=== PATIENT | male | born 1950 | race African-American/Black ===

== ENCOUNTER 2021-03-22 13:59 | Outpatient (CLI) | payer MEDICARE, MEDICAID | END 2021-03-22 14:00 | disposition home or self-care (01) | LOC: CSHWCC 13:59 | PROVIDERS: ATTEND Nurse Practitioner Family | DX: L97.322 Non-pressure chronic ulcer of left ankle with fat layer exposed (principal); E11.40 Type 2 diabetes mellitus with diabetic neuropathy, unspecified; E11.65 Type 2 diabetes mellitus with hyperglycemia; F03.91 Unspecified dementia, unspecified severity, with behavioral disturbance; F20.9 Schizophrenia, unspecified; I87.2 Venous insufficiency (chronic) (peripheral); J44.9 Chronic obstructive pulmonary disease, unspecified; N40.0 Benign prostatic hyperplasia without lower urinary tract symptoms; R47.02 Dysphasia; I12.9 Hypertensive chronic kidney disease with stage 1 through stage 4 chronic kidney disease, or unspecified chronic kidney disease; N18.9 Chronic kidney disease, unspecified; D63.1 Anemia in chronic kidney disease; I05.9 Rheumatic mitral valve disease, unspecified; R60.0 Localized edema | CPT/HCPCS: 11042; 97139; G0463; 99204 ==

== ENCOUNTER 2021-09-30 07:49 | Inpatient (IN) | payer MEDICARE, MEDICAID ==
[2021-09-30] MEDS ORDERED: methylPREDNISolone Sod Succ/PF 125 MG/2 ML VIAL ONE (08:00)
[2021-09-30] MEDS ORDERED: Calcium Chloride 1 GM/10 ML Abboject SYRINGE ONE (08:17)
[2021-09-30] MEDS ORDERED: Succinylcholine 200 MG/10 ml SYRINGE FS ONE (08:17)
[2021-09-30] MEDS ORDERED: EPINEPHrine 1 MG/10 ML Abboject SYRINGE ONE (08:18)
[2021-09-30] MEDS ORDERED: Fentanyl 100 MCG/2 ML VIAL ONE ×3 (08:50→09:53)
[2021-09-30 08:51] LABS: Hemoglobin 12.7 g/dL (13.5-17.5); Manual Diff?? YES; Mean Corpuscular HGB CONC 30.2 g/dL (32.0-36.0); Mean Corpuscular Hemoglobin 34.1 pg (27.0-33.0); Mean Corpuscular Volume 113.2 fl (81.2-95.1); Mean Platelet Volume 12.7 fl (7.4-10.4); Platelet Count 385 10x3/uL (150-450); RBC Distribution Width 14.2 % (11.5-14.5); Red Blood Cell (RBC) Count 3.72 10x6/uL (4.32-5.72); White Blood Cell (WBC) Count 15.5 10x3/uL (3.5-10.5)
[2021-09-30 08:52] LABS: MDiff Complete? YES
[2021-09-30] MEDS ORDERED: fentaNYL Citrate/PF 2,000 MCG in Sodium Chloride 0.9% 60 ML IV SCH (09:00)
[2021-09-30 09:04] LABS: Bilirubin Neg (Negative); Blood, Urine 50 (Negative); Glucose, Urine (Dipstick) >=1000 mg/dL (Negative); Ketone, Urine 150 mg/dL (Negative); Leukocyte 500 (Negative); Nitrite Negative (Negative); Protein, Urine (Dipstick) 100 mg/dl (Neg-Trace); Urobilinogen Normal mg/dL (Less than 2)
[2021-09-30 09:05] LABS: Clarity Cloudy (Clear)
[2021-09-30 09:15] LABS: ALT (SGPT) 13 U/L (8-55); AST (SGOT) 13 U/L (5-34); Albumin 3.2 g/dL (3.4-4.8); Alkaline Phosphatase 132 U/L (40-110); Anion Gap 47 mmol/L (10-20); BUN (Urea Nitrogen) 72 mg/dL (8.4-25.7); Bilirubin, Total 0.3 mg/dL (0.2-1.2); Calc. Creatinine Clearance 0 mL/min (70-130); Calcium 9.8 mg/dL (7.8-10.44); Carbon Dioxide 10 mmol/L (23-31); Chloride 99 mmol/L (98-107); Globulin 4.6 g/dL (2.4-3.5); Lipase 41 U/L (8-78); Potassium 6.3 mmol/L (3.5-5.1); Protein, Total 7.8 g/dL (5.8-8.1); Sodium 150 mmol/L (136-145)
[2021-09-30 09:19] LABS: Bacteria/HPF 4+ HPF (None Seen); WBC/HPF Greater than 50 HPF (0-3); Yeast-Budding 4+ HPF (None Seen)
[2021-09-30 09:19] LABS: Band 36 % (5-11); Eosinophils 1 % (0-10); Lymphocytes 9 % (21-51); Metamyelocyte 2 % (0-0); Monocytes 17 % (0-10); Myelocyte 2 % (0-0); Neutrophil 32 % (42-75); Reactive Lymphocytes 1 % (0-10)
[2021-09-30 09:20] LABS: Mucous/LPF 2+ LPF (<2+)
[2021-09-30 09:21] LABS: Platelet Morphology Comment Appears Adequate
[2021-09-30 09:24] LABS: Dohle Bodies SLIGHT; Toxic Granulation SLIGHT
[2021-09-30 09:26] LABS: Anisocytosis SLIGHT = 6-15 cells (100X) (0-5/hpf); Glucose Greater than 800 mg/dL (80-115); Phosphorus 10.4 mg/dL (2.3-4.7); Polychromasia SLIGHT = 2-3 cells (100X) (0-2/hpf)
[2021-09-30 09:28] LABS: Basophilic Stippling SLIGHT = 1-2 cells (100X) (None Seen)
[2021-09-30 09:48] LABS: Base Excess (BEa) -16.7 mEq/L (-2.0 to +3.0); CO2 Tension 39.1 mmHg (35.0-45.0); Calcium, Ionized (arterial) 1.37 mmol/L (1.12-1.30); Carboxyhemoglobin (COHb) 0.3 gm% (0.0-3.0); Critical Notified Whom: ER MD; Hemoglobin (Hb) 11.6 g/dL (14.0-18.0); O2 Tension (PaO2), arterial 64.2 mmHg (> 80.0); Potassium - ABG Lab 5.1 mmol/L (3.70-5.30); Puncture Site RBA; Temperature 36.8 C; pH, Arterial 7.11 (7.35-7.45)
[2021-09-30] MEDS ORDERED: Acetaminophen 650 MG Suppository PR PRN (09:48)
[2021-09-30 09:49] LABS: ALV-art Gradient 599.925 mmHg (0-20)
[2021-09-30] MEDS ORDERED: NS 0.9% w/ 20 MEQ KCL 1,000 ML IV PRN ×2 (09:56)
[2021-09-30] MEDS ORDERED: Sodium Chloride 0.9% 1,000 ML IV PRN ×4 (09:56)
[2021-09-30] MEDS ORDERED: Electrolyte Replacement Protocol 1 EACH IVPB ONE (09:56)
[2021-09-30] MEDS ORDERED: Dextrose 5 %-0.45 % NaCl 1,000 ML IV PRN (09:56)
[2021-09-30] MEDS ORDERED: Ventilator Sedation Protocol 1 EACH FS SCH (10:00)
[2021-09-30] MEDS ORDERED: HUMULIN R 100 UNITS in Sodium Chloride 0.9% 100 ML IVPB SCH (10:00)
[2021-09-30] MEDS ORDERED: Insulin Regular 300 UNITS/3 ML VIAL ONE (10:21)
[2021-09-30] MEDS ORDERED: cefTRIAXone\\ROCEPHIN 2 GM VIAL ONE (10:21)
[2021-09-30 10:31] LABS: SARS-CoV-2 NAA Rapid Test Not Detected (NotDetected)
[2021-09-30 10:37] LABS: Anion Gap 43 mmol/L (10-20); BUN (Urea Nitrogen) 67 mg/dL (8.4-25.7); Calc. Creatinine Clearance 0 mL/min (70-130); Calcium 10.1 mg/dL (7.8-10.44); Chloride 106 mmol/L (98-107); Potassium 5.2 mmol/L (3.5-5.1); Sodium 152 mmol/L (136-145)
[2021-09-30 10:42] LABS: Carbon Dioxide 8 mmol/L (23-31)
[2021-09-30 10:44] LABS: Glucose Greater than 800 mg/dL (80-115)
[2021-09-30] MEDS ORDERED: Morphine 2 MG/ML VIAL SLOW IVP PRN (11:30)
[2021-09-30] MEDS ORDERED: DISCONTINUE PREVIOUS NARCOTIC PAIN MEDICATIONS AND BENZODIAZEPINES FS SCH (11:30)
[2021-09-30] MEDS ORDERED: Propofol BOLUS 1,000 MG/100 ML VIAL IV PRN (11:30)
[2021-09-30] MEDS: INSULIN REGULAR IN 0.9 % NACL 100 UNIT in Premix Bag 1 BAG IVPB SCH ×2 (11:46→20:08)
[2021-09-30 12:06] LABS: Anion Gap 40 mmol/L (10-20); BUN (Urea Nitrogen) 68 mg/dL (8.4-25.7); Calc. Creatinine Clearance 16 mL/min (70-130); Calcium 9.6 mg/dL (7.8-10.44); Chloride 109 mmol/L (98-107); Potassium 4.4 mmol/L (3.5-5.1); Sodium 154 mmol/L (136-145)
[2021-09-30 12:11] LABS: Carbon Dioxide 9 mmol/L (23-31)
[2021-09-30 12:23] LABS: Glucose Greater than 800 mg/dL (80-115)
[2021-09-30 13:12] LABS: Actual Bicarbonate (HCO3a) 12.4 mEq/L (22-28); Base Excess (BEa) -14.5 mEq/L (-2.0 to +3.0); Hemoglobin (Hb) 11.9 g/dL (14.0-18.0); O2 Tension (PaO2), arterial 189.8 mmHg (> 80.0); Potassium - ABG Lab 3.8 mmol/L (3.70-5.30); Puncture Site LBA; pH, Arterial 7.19 (7.35-7.45)
[2021-09-30 13:23] LABS: Lactic Acid 2.5 mmol/L (0.5-2.2)
[2021-09-30 13:48] LABS: Anion Gap 37 mmol/L (10-20); BUN (Urea Nitrogen) 67 mg/dL (8.4-25.7); Calc. Creatinine Clearance 16 mL/min (70-130); Calcium 9.3 mg/dL (7.8-10.44); Carbon Dioxide 11 mmol/L (23-31); Chloride 112 mmol/L (98-107); Potassium 3.8 mmol/L (3.5-5.1); Sodium 156 mmol/L (136-145)
[2021-09-30 13:49] LABS: Glucose 709 mg/dL (80-115)
[2021-09-30] MEDS: Propofol 1,000 MG/100 ML VIAL IV PRN (13:58)
[2021-09-30 15:15] LABS: Glucose 519 mg/dL (80-115)
[2021-09-30] MEDS: Cefepime 1 GM in Sodium Chloride 0.9% 100 ML IVPB SCH (15:47)
[2021-09-30] MEDS ORDERED: Vancomycin HCl 750 MG in Sodium Chloride 0.9% 250 ML 250 ML IVPB SCH (16:30)
[2021-09-30] MEDS ORDERED: Sodium Bicarb 50 MEQ/50 ML Abboject 8.4% SYRINGE ONE (17:52)
[2021-09-30 17:58] LABS: Anion Gap 22 mmol/L (10-20); BUN (Urea Nitrogen) 56 mg/dL (8.4-25.7); Calc. Creatinine Clearance 20 mL/min (70-130); Calcium 8.6 mg/dL (7.8-10.44); Carbon Dioxide 19 mmol/L (23-31); Chloride 122 mmol/L (98-107); Glucose 321 mg/dL (80-115); Potassium 3.2 mmol/L (3.5-5.1); Sodium 160 mmol/L (136-145)
[2021-09-30] MEDS: D5 1/2 NS w/20 mEq KCL 1,000 ML IV PRN (20:05)
[2021-09-30] MEDS: Famotidine/PF 20 mg/2ml Vial SLOW IVP SCH (20:07)
[2021-09-30] MEDS ORDERED: Vancomycin 1 GM in Premix Bag 1 BAG IVPB PRN (21:00)
[2021-10-01] MEDS: D5 1/2 NS w/20 mEq KCL 1,000 ML IV PRN ×3 (00:10→08:56)
[2021-10-01] MEDS: INSULIN REGULAR IN 0.9 % NACL 100 UNIT in Premix Bag 1 BAG IVPB SCH (01:55)
[2021-10-01] MEDS: Propofol 1,000 MG/100 ML VIAL IV PRN ×3 (03:27→22:34)
[2021-10-01 04:59] LABS: Anion Gap 12 mmol/L (10-20); BUN (Urea Nitrogen) 42 mg/dL (8.4-25.7); Calc. Creatinine Clearance 27 mL/min (70-130); Calcium 8.2 mg/dL (7.8-10.44); Carbon Dioxide 24 mmol/L (23-31); Glucose 197 mg/dL (80-115); Potassium 3.5 mmol/L (3.5-5.1); Sodium 159 mmol/L (136-145)
[2021-10-01 05:05] LABS: Chloride 127 mmol/L (98-107)
[2021-10-01] MEDS: fentaNYL Citrate-0.9 % NaCl/PF 100 ML IVPB SCH ×2 (05:56→18:15)
[2021-10-01 07:31] LABS: Actual Bicarbonate (HCO3a) 24.9 mEq/L (22-28); Base Excess (BEa) 0.2 mEq/L (-2.0 to +3.0); CO2 Tension 40.3 mmHg (35.0-45.0); Calcium, Ionized (arterial) 1.21 mmol/L (1.12-1.30); Carboxyhemoglobin (COHb) 0.5 gm% (0.0-3.0); Critical Notified Whom: Telemed/ RN; Hemoglobin (Hb) 9.2 g/dL (14.0-18.0); Potassium - ABG Lab 4.1 mmol/L (3.70-5.30); Puncture Site RBA; pH, Arterial 7.41 (7.35-7.45)
[2021-10-01] MEDS: Enoxaparin Sodium 30 MG/0.3 ML SYRINGE SC SCH (09:34)
[2021-10-01] MEDS ORDERED: Dextrose 5% in Water 1,000 ML IV PRN (10:59)
[2021-10-01] MEDS ORDERED: Amiodarone 150 MG in Dextrose 5% in Water 100 ML IVPB SCH (11:15)
[2021-10-01] MEDS ORDERED: Lantus 1000 UNITS/10 ML VIAL SC SCH (11:15)
[2021-10-01] MEDS ORDERED: Amiodarone 450 MG in Dextrose 5% in Water 250 ML IVPB SCH (11:15)
[2021-10-01] MEDS: Amiodarone In Dextrose 200 ML IVPB SCH ×2 (11:26→16:25)
[2021-10-01] MEDS ORDERED: Amiodarone In Dextrose 200 ML IVPB SCH (11:30)
[2021-10-01] MEDS ORDERED: Amiodarone In Dextrose 100 ML IVPB SCH (11:30)
[2021-10-01] MEDS: Cefepime 1 GM in Sodium Chloride 0.9% 100 ML IVPB SCH (15:27)
[2021-10-01] MEDS ORDERED: Vancomycin HCl 750 MG in Sodium Chloride 0.9% 250 ML 250 ML IVPB SCH (16:00)
[2021-10-01 16:29] LABS: Anion Gap 13 mmol/L (10-20); BUN (Urea Nitrogen) 37 mg/dL (8.4-25.7); Calc. Creatinine Clearance 41 mL/min (70-130); Carbon Dioxide 20 mmol/L (23-31); Chloride 125 mmol/L (98-107); Glucose 197 mg/dL (80-115); Potassium 4.3 mmol/L (3.5-5.1); Sodium 154 mmol/L (136-145)
[2021-10-01] MEDS: HumaLOG 300 UNITS/3 ML VIAL SC PRN ×2 (17:13→21:34)
[2021-10-01] MEDS ORDERED: methylPREDNISolone Sod Succ/PF 125 MG/2 ML VIAL IVP SCH (18:00)
[2021-10-01] MEDS ORDERED: Loratadine 10 MG TAB PO SCH (18:30)
[2021-10-01] MEDS: Divalproex Sodium 125 mg Sprinkle Capsule PO SCH (20:23)
[2021-10-01] MEDS: Famotidine/PF 20 mg/2ml Vial SLOW IVP SCH (20:23)
[2021-10-01] MEDS: Lantus 1000 UNITS/10 ML VIAL SC SCH (21:33)
[2021-10-02] MEDS ORDERED: Albumin 25% 25 GM/100 ML BOT IVPB SCH (01:15)
[2021-10-02] MEDS: Amiodarone In Dextrose 200 ML IVPB SCH (03:07)
[2021-10-02] MEDS: HumaLOG 300 UNITS/3 ML VIAL SC PRN ×4 (04:55→23:02)
[2021-10-02 05:05] LABS: Anion Gap 13 mmol/L (10-20); BUN (Urea Nitrogen) 40 mg/dL (8.4-25.7); Calc. Creatinine Clearance 48 mL/min (70-130); Calcium 7.6 mg/dL (7.8-10.44); Carbon Dioxide 21 mmol/L (23-31); Chloride 121 mmol/L (98-107); Glucose 329 mg/dL (80-115); Potassium 4.4 mmol/L (3.5-5.1); Sodium 151 mmol/L (136-145)
[2021-10-02] MEDS: Propofol 1,000 MG/100 ML VIAL IV PRN ×3 (05:58→22:38)
[2021-10-02 07:16] LABS: Actual Bicarbonate (HCO3a) 19.3 mEq/L (22-28); Base Excess (BEa) -5.1 mEq/L (-2.0 to +3.0); Calcium, Ionized (arterial) 1.15 mmol/L (1.12-1.30); Carboxyhemoglobin (COHb) 0.9 gm% (0.0-3.0); Hemoglobin (Hb) 8.1 g/dL (14.0-18.0); O2 Tension (PaO2), arterial 71.8 mmHg (> 80.0); Potassium - ABG Lab 3.7 mmol/L (3.70-5.30); Puncture Site RBA; pH, Arterial 7.39 (7.35-7.45)
[2021-10-02] MEDS: fentaNYL Citrate-0.9 % NaCl/PF 100 ML IVPB SCH ×2 (07:18→19:18)
[2021-10-02] MEDS ORDERED: predniSONE 20 MG TAB PO SCH (08:00)
[2021-10-02] MEDS: Divalproex Sodium 125 mg Sprinkle Capsule PO SCH ×2 (08:45→22:38)
[2021-10-02] MEDS: Enoxaparin Sodium 30 MG/0.3 ML SYRINGE SC SCH (08:45)
[2021-10-02] MEDS: Loratadine 10 MG TAB PO SCH ×2 (08:46→22:37)
[2021-10-02] MEDS ORDERED: Lantus 1000 UNITS/10 ML VIAL SC SCH (09:00)
[2021-10-02] MEDS ORDERED: diphenhydrAMINE 50 MG/ML VIAL IVP SCH (10:15)
[2021-10-02] MEDS: methylPREDNISolone Sod Succ 40 MG VIAL IVP SCH (12:09)
[2021-10-02] MEDS ORDERED: Amiodarone 200 MG TAB PER TUBE SCH (12:30)
[2021-10-02] MEDS: Cefepime 1 GM in Sodium Chloride 0.9% 100 ML IVPB SCH (15:22)
[2021-10-02] MEDS: diphenhydrAMINE 50 MG/ML VIAL IVP SCH ×2 (15:23→22:37)
[2021-10-02 15:40] LABS: Anion Gap 11 mmol/L (10-20); BUN (Urea Nitrogen) 39 mg/dL (8.4-25.7); Calc. Creatinine Clearance 62 mL/min (70-130); Calcium 8.1 mg/dL (7.8-10.44); Carbon Dioxide 22 mmol/L (23-31); Chloride 122 mmol/L (98-107); Glucose 206 mg/dL (80-115); Potassium 4.2 mmol/L (3.5-5.1); Sodium 151 mmol/L (136-145)
[2021-10-02 16:05] LABS: Vancomycin, Trough 9.4 ug/mL
[2021-10-02] MEDS ORDERED: Vancomycin HCl 1 GM in Sodium Chloride 0.9% 250 ML 250 ML IVPB SCH (16:30)
[2021-10-02] MEDS: Dextrose 5% in Water 1,000 ML IV SCH (22:18)
[2021-10-02] MEDS: Amiodarone 200 MG TAB PER TUBE SCH (22:36)
[2021-10-02] MEDS: Famotidine/PF 20 mg/2ml Vial SLOW IVP SCH (22:37)
[2021-10-02] MEDS: Lantus 1000 UNITS/10 ML VIAL SC SCH (23:02)
[2021-10-03] MEDS: Dextrose 5% in Water 1,000 ML IV SCH ×4 (03:26→22:42)
[2021-10-03] MEDS: HumaLOG 300 UNITS/3 ML VIAL SC PRN ×4 (03:28→22:27)
[2021-10-03 04:06] LABS: Anion Gap 11 mmol/L (10-20); BUN (Urea Nitrogen) 40 mg/dL (8.4-25.7); Calc. Creatinine Clearance 67 mL/min (70-130); Calcium 7.5 mg/dL (7.8-10.44); Carbon Dioxide 22 mmol/L (23-31); Chloride 121 mmol/L (98-107); Glucose 228 mg/dL (80-115); Magnesium 1.6 mg/dL (1.6-2.6); Potassium 4.3 mmol/L (3.5-5.1); Sodium 150 mmol/L (136-145)
[2021-10-03 04:25] LABS: Hemoglobin 6.9 g/dL (13.5-17.5); Mean Corpuscular HGB CONC 32.1 g/dL (32.0-36.0); Mean Corpuscular Hemoglobin 33.8 pg (27.0-33.0); Mean Corpuscular Volume 105.4 fl (81.2-95.1); Mean Platelet Volume 12.1 fl (7.4-10.4); Platelet Count 134 10x3/uL (150-450); RBC Distribution Width 15.5 % (11.5-14.5); Red Blood Cell (RBC) Count 2.04 10x6/uL (4.32-5.72); White Blood Cell (WBC) Count 13.4 10x3/uL (3.5-10.5)
[2021-10-03 07:00] LABS: Band 36 % (5-11); Lymphocytes 8 % (21-51); Monocytes 2 % (0-10)
[2021-10-03 07:02] LABS: Neutrophil 54 % (42-75)
[2021-10-03 07:03] LABS: Anisocytosis SLIGHT = 6-15 cells (100X) (0-5/hpf); Hypochromia SLIGHT = 6-15 cells (100X) (0-5/hpf); Macrocytosis MODERATE=16-30 cells (100X) (0-5/hpf)
[2021-10-03 07:05] LABS: Dohle Bodies SLIGHT; Large Platelets MODERATE; Platelet Clumps SLIGHT; Platelet Morphology Comment Appears Adequate; Toxic Granulation MODERATE
[2021-10-03 07:07] LABS: Polychromasia SLIGHT = 2-3 cells (100X) (0-2/hpf)
[2021-10-03 08:37] LABS: ALV-art Gradient 175.325 mmHg (0-20); Actual Bicarbonate (HCO3a) 24.8 mEq/L (22-28); Base Excess (BEa) 0.3 mEq/L (-2.0 to +3.0); CO2 Tension 39.1 mmHg (35.0-45.0); Calcium, Ionized (arterial) 1.16 mmol/L (1.12-1.30); Carboxyhemoglobin (COHb) 0.9 gm% (0.0-3.0); Critical Notified Whom: TeleMed/RN; Hemoglobin (Hb) 7.9 g/dL (14.0-18.0); Potassium - ABG Lab 3.9 mmol/L (3.70-5.30); Puncture Site RBA; pH, Arterial 7.42 (7.35-7.45)
[2021-10-03] MEDS: Amiodarone 200 MG TAB PER TUBE SCH ×2 (08:54→22:00)
[2021-10-03] MEDS: Divalproex Sodium 125 mg Sprinkle Capsule PO SCH ×2 (08:55→21:59)
[2021-10-03] MEDS: Famotidine/PF 20 mg/2ml Vial SLOW IVP SCH ×2 (08:55→21:56)
[2021-10-03] MEDS: Enoxaparin Sodium 40 MG/0.4 ML SYRINGE SC SCH (08:55)
[2021-10-03] MEDS: diphenhydrAMINE 50 MG/ML VIAL IVP SCH ×3 (08:55→21:58)
[2021-10-03] MEDS: Loratadine 10 MG TAB PO SCH ×2 (08:56→22:00)
[2021-10-03] MEDS: Lantus 1000 UNITS/10 ML VIAL SC SCH ×2 (08:57→21:57)
[2021-10-03] MEDS: fentaNYL Citrate-0.9 % NaCl/PF 100 ML IVPB SCH ×2 (09:00→22:01)
[2021-10-03 09:04] LABS: ALV-art Gradient 615.075 mmHg (0-20); Actual Bicarbonate (HCO3a) 9.6 mEq/L (22-28); CO2 Tension 39.3 mmHg (35.0-45.0); Carboxyhemoglobin (COHb) 0.1 gm% (0.0-3.0); Hemoglobin (Hb) 13.7 g/dL (14.0-18.0); O2 Tension (PaO2), arterial 48.8 mmHg (> 80.0); Potassium - ABG Lab 5.5 mmol/L (3.70-5.30); Puncture Site RBA; pH, Arterial 7.01 (7.35-7.45)
[2021-10-03] MEDS: Propofol 1,000 MG/100 ML VIAL IV PRN ×2 (11:04→22:00)
[2021-10-03 11:40] LABS: Hemoglobin 7.3 g/dL (13.5-17.5); Mean Corpuscular HGB CONC 32.2 g/dL (32.0-36.0); Mean Corpuscular Hemoglobin 33.5 pg (27.0-33.0); Mean Corpuscular Volume 104.1 fl (81.2-95.1); Mean Platelet Volume 11.9 fl (7.4-10.4); Platelet Count 147 10x3/uL (150-450); RBC Distribution Width 15.3 % (11.5-14.5); Red Blood Cell (RBC) Count 2.18 10x6/uL (4.32-5.72); White Blood Cell (WBC) Count 11.6 10x3/uL (3.5-10.5)
[2021-10-03 11:59] LABS: Anion Gap 11 mmol/L (10-20); BUN (Urea Nitrogen) 40 mg/dL (8.4-25.7); Calc. Creatinine Clearance 66 mL/min (70-130); Calcium 7.7 mg/dL (7.8-10.44); Carbon Dioxide 23 mmol/L (23-31); Chloride 120 mmol/L (98-107); Glucose 292 mg/dL (80-115); Potassium 3.8 mmol/L (3.5-5.1); Sodium 150 mmol/L (136-145)
[2021-10-03 12:03] LABS: MDiff Complete? YES
[2021-10-03 12:10] LABS: Band 7 % (5-11); Lymphocytes 5 % (21-51); Metamyelocyte 1 % (0-0); Monocytes 3 % (0-10); Myelocyte 2 % (0-0); Neutrophil 82 % (42-75)
[2021-10-03 12:12] LABS: Platelet Morphology Comment Appears Adequate
[2021-10-03 12:15] LABS: Macrocytosis SLIGHT = 6-15 cells (100X) (0-5/hpf)
[2021-10-03 12:16] LABS: Hypochromia SLIGHT = 6-15 cells (100X) (0-5/hpf)
[2021-10-03] MEDS: methylPREDNISolone Sod Succ 40 MG VIAL IVP SCH (12:41)
[2021-10-03 15:36] LABS: Iron 88 ug/dL (65-175); Iron Binding Capacity, Total 91 mcg/dL (261-462)
[2021-10-03] MEDS ORDERED: Vancomycin HCl 1 GM in Sodium Chloride 0.9% 250 ML 250 ML IVPB SCH (16:00)
[2021-10-03] MEDS: Cefepime 1 GM in Sodium Chloride 0.9% 100 ML IVPB SCH ×2 (16:47→16:49)
[2021-10-03 22:42] LABS: Anion Gap 12 mmol/L (10-20); BUN (Urea Nitrogen) 35 mg/dL (8.4-25.7); Calc. Creatinine Clearance 68 mL/min (70-130); Calcium 7.5 mg/dL (7.8-10.44); Carbon Dioxide 21 mmol/L (23-31); Chloride 116 mmol/L (98-107); Glucose 351 mg/dL (80-115); Potassium 3.6 mmol/L (3.5-5.1); Sodium 145 mmol/L (136-145)
[2021-10-04] MEDS: Cefepime 1 GM in Sodium Chloride 0.9% 100 ML IVPB SCH ×2 (03:46→16:35)
[2021-10-04] MEDS: HumaLOG 300 UNITS/3 ML VIAL SC PRN ×2 (04:06→11:23)
[2021-10-04 04:26] LABS: Anion Gap 14 mmol/L (10-20); BUN (Urea Nitrogen) 31 mg/dL (8.4-25.7); Calc. Creatinine Clearance 66 mL/min (70-130); Calcium 8.3 mg/dL (7.8-10.44); Carbon Dioxide 18 mmol/L (23-31); Chloride 114 mmol/L (98-107); Glucose 312 mg/dL (80-115); Potassium 3.4 mmol/L (3.5-5.1); Sodium 143 mmol/L (136-145)
[2021-10-04 04:28] LABS: Hemoglobin 10.1 g/dL (13.5-17.5); Mean Corpuscular HGB CONC 33.9 g/dL (32.0-36.0); Mean Corpuscular Hemoglobin 33.2 pg (27.0-33.0); Mean Platelet Volume 12.5 fl (7.4-10.4); Platelet Count 149 10x3/uL (150-450); RBC Distribution Width 16.6 % (11.5-14.5); Red Blood Cell (RBC) Count 3.04 10x6/uL (4.32-5.72); White Blood Cell (WBC) Count 10.5 10x3/uL (3.5-10.5)
[2021-10-04 04:31] LABS: ALT (SGPT) 16 U/L (8-55); AST (SGOT) 33 U/L (5-34); Albumin 2.1 g/dL (3.4-4.8); Alkaline Phosphatase 177 U/L (40-110); Bilirubin, Direct 0.4 mg/dL (0.1-0.3); Bilirubin, Total 0.7 mg/dL (0.2-1.2); Protein, Total 5.7 g/dL (5.8-8.1)
[2021-10-04 07:27] LABS: Actual Bicarbonate (HCO3a) 22.4 mEq/L (22-28); Base Excess (BEa) -2.6 mEq/L (-2.0 to +3.0); CO2 Tension 39.4 mmHg (35.0-45.0); Calcium, Ionized (arterial) 1.14 mmol/L (1.12-1.30); Carboxyhemoglobin (COHb) 0.3 gm% (0.0-3.0); Hemoglobin (Hb) 10.3 g/dL (14.0-18.0); O2 Tension (PaO2), arterial 59.3 mmHg (> 80.0); Potassium - ABG Lab 3.2 mmol/L (3.70-5.30); Puncture Site RRA; pH, Arterial 7.37 (7.35-7.45)
[2021-10-04] MEDS: Enoxaparin Sodium 40 MG/0.4 ML SYRINGE SC SCH (08:34)
[2021-10-04] MEDS: Propofol 1,000 MG/100 ML VIAL IV PRN ×2 (08:34→16:51)
[2021-10-04] MEDS: Divalproex Sodium 125 mg Sprinkle Capsule PO SCH ×2 (08:35→20:37)
[2021-10-04] MEDS: diphenhydrAMINE 50 MG/ML VIAL IVP SCH ×3 (08:35→20:36)
[2021-10-04] MEDS: Famotidine/PF 20 mg/2ml Vial SLOW IVP SCH ×2 (08:35→20:37)
[2021-10-04] MEDS: Dextrose 5% in Water 1,000 ML IV SCH (08:36)
[2021-10-04] MEDS: Loratadine 10 MG TAB PO SCH ×2 (08:36→20:37)
[2021-10-04] MEDS: Amiodarone 200 MG TAB PER TUBE SCH ×2 (08:36→20:36)
[2021-10-04] MEDS: Lantus 1000 UNITS/10 ML VIAL SC SCH (08:37)
[2021-10-04] MEDS ORDERED: Electrolyte Replacement Protocol 1 EACH FS SCH (10:30)
[2021-10-04] MEDS ORDERED: Potassium Chloride 40 MEQ in Premix Bag 1 BAG IVPB SCH (10:45)
[2021-10-04 10:48] LABS: Phosphorus 2.5 mg/dL (2.3-4.7)
[2021-10-04 10:49] LABS: Anion Gap 11 mmol/L (10-20); BUN (Urea Nitrogen) 26 mg/dL (8.4-25.7); Calc. Creatinine Clearance 72 mL/min (70-130); Calcium 7.3 mg/dL (7.8-10.44); Carbon Dioxide 21 mmol/L (23-31); Chloride 113 mmol/L (98-107); Glucose 216 mg/dL (80-115); Potassium 3.3 mmol/L (3.5-5.1); Sodium 142 mmol/L (136-145)
[2021-10-04] MEDS: methylPREDNISolone Sod Succ 40 MG VIAL IVP SCH (11:26)
[2021-10-04] MEDS: fentaNYL Citrate-0.9 % NaCl/PF 100 ML IVPB SCH ×2 (12:30→20:37)
[2021-10-04] MEDS ORDERED: Magnesium 2 GM/50 ML 2 GM in Premix Bag 1 BAG IVPB SCH (12:45)
[2021-10-04] MEDS ORDERED: Morphine 4 MG/ML VIAL SLOW IVP PRN (15:45)
[2021-10-04] MEDS ORDERED: Norepinephrine 8 MG/0.9% NS 250 ML ONE (16:36)
[2021-10-04] MEDS ORDERED: Norepinephrine 8 MG/0.9% NS 250 ML IVPB SCH (16:45)
[2021-10-04] MEDS ORDERED: Lantus 1000 UNITS/10 ML VIAL SC SCH (21:00)
[2021-10-05] MEDS: Cefepime 1 GM in Sodium Chloride 0.9% 100 ML IVPB SCH ×2 (03:05→16:34)
[2021-10-05] MEDS: Propofol 1,000 MG/100 ML VIAL IV PRN ×3 (03:05→18:39)
[2021-10-05 04:16] LABS: Mean Corpuscular HGB CONC 34.2 g/dL (32.0-36.0); Mean Corpuscular Hemoglobin 33.2 pg (27.0-33.0); Mean Corpuscular Volume 97.3 fl (81.2-95.1); Mean Platelet Volume 12.1 fl (7.4-10.4); Platelet Count 129 10x3/uL (150-450); RBC Distribution Width 16.5 % (11.5-14.5); Red Blood Cell (RBC) Count 3.31 10x6/uL (4.32-5.72); White Blood Cell (WBC) Count 7.9 10x3/uL (3.5-10.5)
[2021-10-05 04:35] LABS: Anion Gap 15 mmol/L (10-20); BUN (Urea Nitrogen) 27 mg/dL (8.4-25.7); Calc. Creatinine Clearance 66 mL/min (70-130); Calcium 8.4 mg/dL (7.8-10.44); Carbon Dioxide 19 mmol/L (23-31); Chloride 114 mmol/L (98-107); Glucose 170 mg/dL (80-115); Magnesium 2.1 mg/dL (1.6-2.6); Potassium 4.2 mmol/L (3.5-5.1); Sodium 144 mmol/L (136-145)
[2021-10-05] MEDS: HumaLOG 300 UNITS/3 ML VIAL SC PRN (05:12)
[2021-10-05 07:47] LABS: Actual Bicarbonate (HCO3a) 22.6 mEq/L (22-28); Base Excess (BEa) -0.1 mEq/L (-2.0 to +3.0); CO2 Tension 29.8 mmHg (35.0-45.0); Calcium, Ionized (arterial) 1.21 mmol/L (1.12-1.30); Carboxyhemoglobin (COHb) 0.3 gm% (0.0-3.0); Hemoglobin (Hb) 10.3 g/dL (14.0-18.0); O2 Tension (PaO2), arterial 55.9 mmHg (> 80.0); Potassium - ABG Lab 4.2 mmol/L (3.70-5.30); Puncture Site RBA
[2021-10-05] MEDS: Enoxaparin Sodium 40 MG/0.4 ML SYRINGE SC SCH (08:47)
[2021-10-05] MEDS: diphenhydrAMINE 50 MG/ML VIAL IVP SCH ×3 (08:47→21:50)
[2021-10-05] MEDS: Famotidine/PF 20 mg/2ml Vial SLOW IVP SCH ×2 (08:47→21:50)
[2021-10-05] MEDS: Amiodarone 200 MG TAB PER TUBE SCH ×2 (08:48→21:50)
[2021-10-05] MEDS: Divalproex Sodium 125 mg Sprinkle Capsule PO SCH ×2 (08:48→21:50)
[2021-10-05] MEDS: Loratadine 10 MG TAB PO SCH (08:48)
[2021-10-05] MEDS ORDERED: Lantus 1000 UNITS/10 ML VIAL SC SCH ×2 (09:00→21:00)
[2021-10-05] MEDS: Dextrose 50% Abboject 50 ML SYRINGE SLOW IVP PRN ×2 (10:19→16:23)
[2021-10-05] MEDS: methylPREDNISolone Sod Succ 40 MG VIAL IVP SCH (11:15)
[2021-10-05] MEDS: fentaNYL Citrate-0.9 % NaCl/PF 100 ML IVPB SCH (13:39)
[2021-10-05] MEDS: Dextrose 5% in Water 1,000 ML IV SCH (17:09)
[2021-10-06] MEDS: Dextrose 5% in Water 1,000 ML IV SCH ×2 (02:42→12:02)
[2021-10-06] MEDS: Cefepime 1 GM in Sodium Chloride 0.9% 100 ML IVPB SCH ×2 (04:13→15:44)
[2021-10-06] MEDS: Dextrose 50% Abboject 50 ML SYRINGE SLOW IVP PRN (04:27)
[2021-10-06] MEDS: Lorazepam 2 MG/ML VIAL SLOW IVP PRN ×2 (04:27→12:21)
[2021-10-06] MEDS: Propofol 1,000 MG/100 ML VIAL IV PRN ×2 (04:48→14:17)
[2021-10-06] MEDS: fentaNYL Citrate-0.9 % NaCl/PF 100 ML IVPB SCH (04:48)
[2021-10-06 04:49] LABS: Anion Gap 13 mmol/L (10-20); BUN (Urea Nitrogen) 20 mg/dL (8.4-25.7); Calc. Creatinine Clearance 79 mL/min (70-130); Calcium 7.4 mg/dL (7.8-10.44); Carbon Dioxide 22 mmol/L (23-31); Chloride 113 mmol/L (98-107); Glucose 81 mg/dL (80-115); Potassium 4.1 mmol/L (3.5-5.1); Sodium 144 mmol/L (136-145)
[2021-10-06 04:54] LABS: Hemoglobin 8.5 g/dL (13.5-17.5); Mean Corpuscular HGB CONC 32.3 g/dL (32.0-36.0); Mean Corpuscular Hemoglobin 32.4 pg (27.0-33.0); Mean Corpuscular Volume 100.4 fl (81.2-95.1); Mean Platelet Volume 12.4 fl (7.4-10.4); Platelet Count 206 10x3/uL (150-450); RBC Distribution Width 16.5 % (11.5-14.5); Red Blood Cell (RBC) Count 2.62 10x6/uL (4.32-5.72); White Blood Cell (WBC) Count 12.9 10x3/uL (3.5-10.5)
[2021-10-06 07:55] LABS: Actual Bicarbonate (HCO3a) 26.3 mEq/L (22-28); Base Excess (BEa) 1.9 mEq/L (-2.0 to +3.0); CO2 Tension 40.2 mmHg (35.0-45.0); Calcium, Ionized (arterial) 1.17 mmol/L (1.12-1.30); Carboxyhemoglobin (COHb) 0.3 gm% (0.0-3.0); Hemoglobin (Hb) 8.6 g/dL (14.0-18.0); O2 Tension (PaO2), arterial 56.2 mmHg (> 80.0); Potassium - ABG Lab 3.8 mmol/L (3.70-5.30); Puncture Site RBA; pH, Arterial 7.43 (7.35-7.45)
[2021-10-06] MEDS ORDERED: Magnesium 2 GM/50 ML 2 GM in Premix Bag 1 BAG IVPB SCH (08:00)
[2021-10-06 08:59] VITALS: BMI 20.9
[2021-10-06] MEDS ORDERED: Lantus 1000 UNITS/10 ML VIAL SC SCH (09:00)
[2021-10-06] MEDS: Amiodarone 200 MG TAB PER TUBE SCH (09:05)
[2021-10-06] MEDS: Enoxaparin Sodium 40 MG/0.4 ML SYRINGE SC SCH (09:05)
[2021-10-06] MEDS: Divalproex Sodium 125 mg Sprinkle Capsule PO SCH (09:05)
[2021-10-06] MEDS: diphenhydrAMINE 50 MG/ML VIAL IVP SCH ×2 (09:06→15:44)
[2021-10-06] MEDS: Famotidine/PF 20 mg/2ml Vial SLOW IVP SCH (09:06)
[2021-10-06] MEDS: methylPREDNISolone Sod Succ 40 MG VIAL IVP SCH (11:26)
[2021-10-06 11:47] LABS: Hemoglobin 7.9 g/dL (13.5-17.5)
[2021-10-06 12:35] VITALS: TEMP 97.9
[2021-10-06] MEDS ORDERED: methylPREDNISolone Sod Succ 40 MG VIAL IVP SCH (15:00)
[2021-10-06 15:56] VITALS: BP 89/49
[2021-10-07] MEDS ORDERED: Enoxaparin Sodium 40 MG/0.4 ML SYRINGE SC SCH (09:00)
[2021-10-07] MEDS ORDERED: Enoxaparin Sodium 60 MG/0.6 ML SYRINGE SC SCH (09:00)
== END 2021-10-06 16:33 | disposition short-term general hospital (02) | DRG 207 ==
LOC: CSHERS 07:49 → CSHIMCU 11:08
PROVIDERS: ADMIT Internal Medicine; ATTEND Internal Medicine
PROC: 0BH17EZ Insertion of Endotracheal Airway into Trachea, Via Natural or Artificial Opening (ICD-10-PCS; principal; 2021-09-30)
PROC: 5A1955Z Respiratory Ventilation, Greater than 96 Consecutive Hours (ICD-10-PCS; 2021-09-30)
PROC: 02H633Z Insertion of Infusion Device into Right Atrium, Percutaneous Approach (ICD-10-PCS; 2021-09-30)
PROC: B548ZZA Ultrasonography of Superior Vena Cava, Guidance (ICD-10-PCS; 2021-09-30)
PROC: 0DH67UZ Insertion of Feeding Device into Stomach, Via Natural or Artificial Opening (ICD-10-PCS; 2021-09-30)
PROC: 3E0G76Z Introduction of Nutritional Substance into Upper GI, Via Natural or Artificial Opening (ICD-10-PCS; 2021-09-30)
PROC: 30233N1 Transfusion of Nonautologous Red Blood Cells into Peripheral Vein, Percutaneous Approach (ICD-10-PCS; 2021-10-03)
PROC: 3E033XZ Introduction of Vasopressor into Peripheral Vein, Percutaneous Approach (ICD-10-PCS; 2021-10-04)
DX: J96.01 Acute respiratory failure with hypoxia (principal); E11.10 Type 2 diabetes mellitus with ketoacidosis without coma; F20.0 Paranoid schizophrenia; E87.0 Hyperosmolality and hypernatremia; I48.92 Unspecified atrial flutter; N17.9 Acute kidney failure, unspecified; B37.49 Other urogenital candidiasis; E44.1 Mild protein-calorie malnutrition; G30.9 Alzheimer's disease, unspecified; F02.80 Dementia in other diseases classified elsewhere, unspecified severity, without behavioral disturbance, psychotic disturbance, mood disturbance, and anxiety; Z20.822 Contact with and (suspected) exposure to COVID-19; E87.5 Hyperkalemia; T78.3XXA Angioneurotic edema, initial encounter; I70.202 Unspecified atherosclerosis of native arteries of extremities, left leg; E11.649 Type 2 diabetes mellitus with hypoglycemia without coma; E11.51 Type 2 diabetes mellitus with diabetic peripheral angiopathy without gangrene; L89.529 Pressure ulcer of left ankle, unspecified stage; G40.909 Epilepsy, unspecified, not intractable, without status epilepticus; J44.9 Chronic obstructive pulmonary disease, unspecified; I95.2 Hypotension due to drugs; D53.9 Nutritional anemia, unspecified; T42.75XA Adverse effect of unspecified antiepileptic and sedative-hypnotic drugs, initial encounter; I25.10 Atherosclerotic heart disease of native coronary artery without angina pectoris; N40.0 Benign prostatic hyperplasia without lower urinary tract symptoms; L89.629 Pressure ulcer of left heel, unspecified stage; M19.90 Unspecified osteoarthritis, unspecified site; F32.A Depression, unspecified; H40.9 Unspecified glaucoma; E86.0 Dehydration; Z88.0 Allergy status to penicillin; Z88.8 Allergy status to other drugs, medicaments and biological substances; Z79.899 Other long term (current) drug therapy; Z79.82 Long term (current) use of aspirin; Z79.84 Long term (current) use of oral hypoglycemic drugs; Z79.891 Long term (current) use of opiate analgesic; Z79.4 Long term (current) use of insulin; Z68.20 Body mass index [BMI] 20.0-20.9, adult; Z78.1 Physical restraint status
CPT/HCPCS: 31500; 36415; 36416; 36430; 36556; 36600; 51702; 71045; 74176; 80048; 80053; 80076; 80202; 81003; 81015; 82010; 82805; 83540; 83550; 83605; 83615; 83690; 83735; 84100; 84443; 84484; 85007; 85025; 85027; 85652; 86140; 86160; 86850; 86900; 86901; 87040; 87070; 87086; 87205; 93005; 93010; 93306; 93923; 94002; 94003; 94640; 94760; 96365; 96374; 96375; 96376; 99292; J0171; J0282; J0692; J0696; J1200; J1650; J1815; J2060; J2704; J2920; J2930; J3010; J3370; J3475; J3480; J3490; J7050; J7070; J7512; J7620; P9016; P9047; S0028; U0002